=== PATIENT | female | born 1955 | race Caucasian/White ===

== ENCOUNTER 2020-09-24 12:12 | Outpatient (CLI) | payer MEDICARE, SELFPAY ==
--- NOTE | 2020-09-24 12:57 | MM_ITS ---
WS: [id number] ADDITIONAL VIEWS LEFT MAMMOGRAM HISTORY: LEFT BREAST CALCIFICATION COMPARISON: 08/19/2020 Magnification views LEFT breast in CC, MLO projections and true ML submitted. Small cluster of round coarse calcifications persist near the 3-4 o'clock axis. Calcifications are ju st lateral to the nipple line. Soft tissue nodule overlies the calcifications on the MLO projection b ut this may be superimposed density. Calcifications are in a slight linear distribution on the MLO pr [place]jection. MM/[place] [id number] IMPRESSION: BI-RADS: 4-Suspicious Finding-Biopsy Should Be Considered FOLLOW UP: Biopsy Recommended Stereotactic biopsy recommended of the LEFT breast calcifications near 3:00.
--- NOTE | 2020-10-01 10:45 | PC.NURSE ---
Spoke with pt on the phone. She wants to talk to her pcp before she schedules her biopsy. I let the pt know I will call her sunday to see what she decides to do. Jayden HAMEED
--- NOTE | 2020-10-11 15:17 | PC.NURSE ---
Called patient to see if she has made a decision on whether or not she wants to have her biopsy. Prior she said she wanted to talk to her pcp first. Today, she said she has decided to not have the biopsy. Pcp is not aware yet. She said she has an appt tomorrow and will discuss it then. I will call pcp Inocencia Vasquez sunday to make sure they are aware. Jayden HAMEED
== END 2020-09-24 12:13 | disposition home or self-care (01) ==
LOC: RADSHAW 12:19
PROVIDERS: PCP Family Medicine; Visit Provider Family Medicine
DX: R92.1 Mammographic calcification found on diagnostic imaging of breast (principal)
CPT/HCPCS: 77065

== ENCOUNTER 2021-07-21 13:57 | Outpatient (CLI) | payer MEDICARE, SELFPAY ==
--- NOTE | 2021-07-21 14:07 | MM_ITS ---
WS: [id number] BILATERAL DIGITAL DIAGNOSTIC MAMMOGRAM MAMMOGRAPHY WITH CAD CLINICAL INFORMATION: LT BREAST CALCIFICATION;ABNORMAL MAMMOGRAM LT BREAST COMPARISON: September 24, 2020 TECHNIQUE: Bilateral CC, MLO, and ML views. FINDINGS: Scattered fibroglandular densities bilaterally. Previously described clustered calcifications at the 3-4 position are stable in appearance. These are indeterminant but unchanged since August 19, 2020. Biopsy was recommended previously and patient elected not to pursue biopsy. Stable punctate calcific ations right breast. No new suspicious findings. MM/[place] [id number] IMPRESSION: BI-RADS: 3-Probably Benign FOLLOW UP: 6 Month Follow-up Recommend left breast diagnostic mammography in 6 months with spot magnificatio n views of the clustered calcifications.
== END 2021-07-21 13:58 | disposition home or self-care (01) ==
PROVIDERS: PCP Family Medicine; Visit Provider Family Medicine
DX: R92.1 Mammographic calcification found on diagnostic imaging of breast (principal); R92.8 Other abnormal and inconclusive findings on diagnostic imaging of breast
CPT/HCPCS: 77066

== ENCOUNTER 2022-01-25 11:52 | Outpatient (CLI) | payer MEDICARE, SELFPAY ==
--- NOTE | 2022-01-25 12:07 | MM_ITS ---
WS: [id number] LEFT 3D TOMOSYNTHESIS DIGITAL MAMMOGRAPHY WITH CAD CLINICAL INFORMATION: LT CALCIFICATION;ABNORMAL MAMMOGRAM LT BREAST HISTORY: Six-month follow-up LEFT breast calcifications. COMPARISON: July 21, 2021 and August 19, 2020 TECHNIQUE: 3 views of the left breast were obtained. FINDINGS: Scattered fibroglandular densities of the left breast. Clustered calcifications anterior central LEFT breast are unchanged compared to July 21, 2021. These appear stable compared to August 19, 2020 . Recommend additional six-month follow-up to document 2 year stability. Biopsy was previously recomm ended and patient elected not to pursue biopsy at that time MM/[place] [id number] IMPRESSION: BI-RADS: 3-Probably Benign FOLLOW UP: 6 Month Follow-up Recommend LEFT breast diagnostic mammography with spot magnification views in 6 months.
== END 2022-01-25 11:53 | disposition home or self-care (01) ==
LOC: RAD 11:56
PROVIDERS: PCP Family Medicine; Visit Provider Family Medicine
DX: R92.1 Mammographic calcification found on diagnostic imaging of breast (principal)
CPT/HCPCS: 77061

== ENCOUNTER 2022-08-18 15:09 | Outpatient (CLI) | payer MEDICARE, SELFPAY ==
--- NOTE | 2022-08-18 15:25 | MM_ITS ---
WS: [id number] LEFT 3D TOMOSYNTHESIS DIGITAL MAMMOGRAPHY WITH CAD CLINICAL INFORMATION: 6 MO F/U LT BR CALCS HISTORY: Six-month follow-up breast calcifications COMPARISON: 01/25/2022 and 07/21/2021, September 24, 2020 and August 19, 2020 TECHNIQUE: 3 views of the left breast were obtained. FINDINGS: Scattered fibroglandular densities of the left breast. Clustered calcifications anterior central LEFT breast unchanged compared to 07/21/2021 and 08/19/2020. Calcifications stable for 2 years. Biopsy was previously recommended and patient elected not to pursue biopsy at that time No other new findings. No suspicious focal mass, asymmetry, calcifications, or architectural distortion. No evidence of rasheed gnancy. MM/[place] [id number] IMPRESSION: BI-RADS: 2-Benign FOLLOW UP: 1 Year Follow-up Recommend return to annual screening mammography.
== END 2022-08-18 15:10 | disposition home or self-care (01) ==
PROVIDERS: PCP Family Medicine; Visit Provider Family Medicine
DX: R92.8 Other abnormal and inconclusive findings on diagnostic imaging of breast (principal)
CPT/HCPCS: 77061